=== PATIENT | female | born 1985 | race Caucasian/White ===

== ENCOUNTER 2020-03-25 20:55 | Emergency (ER) | payer OTHER ==
[~2020-03-25] VITALS: Ht 162.6 cm; Wt 59.4 kg
[2020-03-25] MEDS ORDERED: SYMJEPI0.15 MG/0. (21:13)
[2020-03-25] MEDS ORDERED: FAMOTIDINE 20 M20 MG PO (21:26)
[2020-03-25] MEDS ORDERED: PREDNISONE 20 M20 MG PO (21:26)
[2020-03-25 22:03] VITALS: BP 131/94
== END 2020-03-25 22:03 | disposition home or self-care (01) ==
LOC: M.ERS 20:55
DX: T78.40XA Allergy, unspecified, initial encounter (principal); Z79.899 Other long term (current) drug therapy; Z91.048 Other nonmedicinal substance allergy status; Z88.6 Allergy status to analgesic agent; Z91.040 Latex allergy status; X58.XXXA Exposure to other specified factors, initial encounter